=== PATIENT | female | born 1995 | race American Indian/Alaskan Native ===

== ENCOUNTER 2017-07-20 09:22 | Outpatient (CLI) | payer MEDICAID | END 2017-07-20 12:30 | disposition home or self-care (01) | LOC: LAB 09:22 → TRG 11:48 → LAB 12:30 | PROVIDERS: ATTEND Obstetrics & Gynecology | DX: O36.0130 Maternal care for anti-D [Rh] antibodies, third trimester, not applicable or unspecified (principal); Z3A.28 28 weeks gestation of pregnancy | CPT/HCPCS: 86850; 86900; 86901; 96372; J2790 ==

== ENCOUNTER 2017-09-07 06:52 | Outpatient (CLI) | payer MEDICAID ==
[2017-09-07] MEDS ORDERED: LACTATED RINGERS 500 ML IV ONE (07:44)
[2017-09-07 08:05] LABS: Bilirubin,Urine NEG (Negative); Blood,Urine NEG (Negative); Ketones,Urine NEG (Negative); Leukocyte Esterase,Urine NEG (Negative); Mucus,Urine FEW /HPF; Nitrite,Urine NEG (Negative); Protein,Urine <15 mg/dL mg/dL (Negative); WBC,Urine < 1.0 /HPF (0.0-6.0)
[2017-09-07] MEDS ORDERED: LACTATED RINGERS 0 ML ONE (08:05)
[2017-09-07] MEDS ORDERED: LACTATED RINGERS 1,000 ML ONE (08:05)
[2017-09-07 08:55] VITALS: BP 118/74
== END 2017-09-07 09:22 | disposition home or self-care (01) ==
LOC: TRG 06:52
PROVIDERS: ATTEND Obstetrics & Gynecology
DX: O62.9 Abnormality of forces of labor, unspecified (principal); Z3A.35 35 weeks gestation of pregnancy
CPT/HCPCS: 59025; 81001; 96360; J7120

== ENCOUNTER 2017-10-16 13:56 | Outpatient (CLI) | payer MEDICAID ==
[2017-10-16 15:14] VITALS: BP 117/60
== END 2017-10-16 15:36 | disposition home or self-care (01) ==
LOC: TRG 13:56
PROVIDERS: ATTEND Obstetrics & Gynecology
DX: O48.0 Post-term pregnancy (principal); Z3A.41 41 weeks gestation of pregnancy
CPT/HCPCS: 59025